=== PATIENT | male | born 1980 | race American Indian/Alaskan Native ===

== ENCOUNTER 2024-08-20 09:24 | Emergency (ER) | payer OTHER ==
[~2024-08-20] VITALS: Ht 170.2 cm; Wt 69.4 kg
[~2024-08-20 09:24] MED LIST: VENTOLIN HFA18 GM INH
[2024-08-20 10:09] LABS: BASOPHILS 0.8 % (0-2); EOSINOPHILS 0.7 % (0-6); HEMATOCRIT 35.7 % (35.0-50.0); HEMOGLOBIN 11.1 g/dL (12.0-18.0); LYMPHOCYTES 15.4 % (24-44); MCH 22.3 (27-36); MCHC 31.1 g/dl (30-36); MCV 71.6 fl (81-99); MONOCYTES 7.1 % (0-12); PLATELET COUNT 367 K/uL (140-440); RBC 4.99 M/ul (4.3-5.7); RDW 20.3 (10.5-15.0)
[2024-08-20 10:32] LABS: ACETAMINOPHEN 0 ug/mL (10-30); ALCOHOL, MEDICAL 235 ng/dL (<3); ALKALINE PHOSPHATASE 71 U/L (46-116); ALT (SGPT) 22 U/L (14-59); ANION GAP 19.1 (7-21); AST (SGOT) 48 U/L (15-37); BILIRUBIN, TOTAL 0.5 ng/dL (0.2-1.0); BUN/CREATININE RATIO 9.28 (6.0-28.6); CALCIUM 8.3 mg/dL (8.5-10.1); CARBON DIOXIDE 22 mmol/L (21-32); CHLORIDE 108 mmol/L (98-107); GLOMERULAR FILTRATION RATE,EST 64 mL/min (>60); POTASSIUM 3.1 mmol/L (3.5-5.1); SALICYLATE 2.7 mg/dL (2.8-20.0); TSH, 3RD GENERATION 0.461 uIU/mL (0.358-3.740); UREA NITROGEN 13 mg/dL (7-18)
[2024-08-20 15:34] LABS: BILIRUBIN, URINE NEGATIVE (negative); BLOOD/HGB, URINE NEGATIVE (Negative); KETONE, URINE SMALL (Negative); LEUK ESTERASE, URINE NEGATIVE (negative); NITRITE, URINE NEGATIVE (negative); PH, URINE 5.5 (5-7)
[2024-08-20 15:48] LABS: AMPHETAMINES, URINE POSITIVE (NEGATIVE); BARBITURATES, URINE NEGATIVE (NEGATIVE); BENZODIAZEPINE, URINE NEGATIVE (NEGATIVE); BUPRENORPHINE, URINE NEGATIVE (NEGATIVE); CANNABINOID, URINE POSITIVE (NEGATIVE); COCAINE, URINE NEGATIVE (NEGATIVE); ECSTASY, URINE NEGATIVE (NEGATIVE); FENTANYL, URINE NEGATIVE (NEGATIVE); METHADONE, URINE NEGATIVE (NEGATIVE); OPIATES, URINE NEGATIVE (NEGATIVE); OXYCODONE, URINE NEGATIVE (NEGATIVE); PHENCYCLIDINE, URINE NEGATIVE (NEGATIVE)
[2024-08-20 16:30] VITALS: BP 118/74
[2024-08-20] MEDS ORDERED: SODIUM CHLORIDE 0.9% 1,000 ML IV ONE (16:45)
== END 2024-08-20 16:31 | disposition home or self-care (01) ==
LOC: ED 09:24
PROVIDERS: Emergency Medicine
DX: R45.851 Suicidal ideations (principal)
CPT/HCPCS: 36415; 80053; 80307; 81003; 82140; 84443; 85025; 99285; G0480; J7030

== ENCOUNTER 2024-10-16 20:31 | Emergency (ER) | payer OTHER ==
[~2024-10-16] VITALS: Ht 170.2 cm; Wt 68.9 kg
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
[2024-10-16 21:45] LABS: EOSINOPHILS 4.8 % (0-6); HEMATOCRIT 32.3 % (35.0-50.0); HEMOGLOBIN 10.1 g/dL (12.0-18.0); LYMPHOCYTES 35.9 % (24-44); MCHC 31.3 g/dl (30-36); MCV 76.7 fl (81-99); MONOCYTES 14.6 % (0-12); NEUTROPHILS 42.7 % (39-80); PLATELET COUNT 455 K/uL (140-440); RBC 4.21 M/ul (4.3-5.7); RDW 23.9 (10.5-15.0)
[2024-10-16 22:00] LABS: ALBUMIN 2.9 g/dL (3.4-5.0); ALBUMIN/GLOBULIN RATIO 0.66 (1.1-2.4); ANION GAP 13.4 (7-21); BILIRUBIN, TOTAL 0.1 ng/dL (0.2-1.0); BUN/CREATININE RATIO 8.88 (6.0-28.6); CALCIUM 8.1 mg/dL (8.5-10.1); CREATININE, SERUM 0.9 mg/dL (0.70-1.30); POTASSIUM 3.4 mmol/L (3.5-5.1); PROTEIN, TOTAL 7.3 g/dL (6.4-8.2)
[2024-10-16] MEDS ORDERED: AZITHROMYCIN 250 MG HOME.PACK PO ONE (23:15)
[2024-10-16] MEDS ORDERED: HYDROCODONE BIT/ACETAMINOPHEN 5/325 MG 1 TAB HOME.PACK PO PRN (23:15)
[2024-10-16] MEDS ORDERED: DOXYCYCLINE HYCLATE 100 MG HOME.PACK PO ONE (23:15)
[2024-10-16] MEDS ORDERED: HYDROCODON-ACE1 EA10 PO (23:16)
[2024-10-16 23:36] VITALS: BP 110/67
== END 2024-10-16 23:42 | disposition home or self-care (01) ==
LOC: ED 20:31
PROVIDERS: Emergency Medicine
DX: S02.40EA Zygomatic fracture, right side, initial encounter for closed fracture (principal); F10.929 Alcohol use, unspecified with intoxication, unspecified; R05.9 Cough, unspecified; K74.60 Unspecified cirrhosis of liver; Y90.6 Blood alcohol level of 120-199 mg/100 ml; V89.2XXA Person injured in unspecified motor-vehicle accident, traffic, initial encounter
CPT/HCPCS: 36415; 70450; 71260; 72125; 74177; 80053; 80307; 85025; 85060; 99284-25; A9270; G0480; Q9967

== ENCOUNTER 2025-05-07 22:26 | Emergency (ER) | payer OTHER ==
[~2025-05-07] VITALS: Ht 170.2 cm; Wt 69.8 kg
[~2025-05-07 22:26] MED LIST changes: +HYDROCODON-ACE1 EA10 PO
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
[2025-05-07 22:56] VITALS: BP 140/95
== END 2025-05-07 23:00 | disposition home or self-care (01) ==
LOC: ED 22:26
DX: F10.90 Alcohol use, unspecified, uncomplicated (principal)
CPT/HCPCS: 99284